=== PATIENT | female | born 1990 | race Caucasian/White ===

== ENCOUNTER 2019-11-08 10:10 | Observation (INO) ==
[2019-11-08 10:39] LABS: Bilirubin,Urine Negative (Negative); Blood,Urine Negative (Negative); Clarity,Urine Clear (Clear); Color,Urine Yellow (Yellow); Glucose,Urine (UA) Normal (Normal); Ketones,Urine Trace mg/dL (Negative); Leukocyte Esterase,Urine Negative (Negative); Nitrite,Urine Negative (Negative); PH,Urine 5.5 pH Units (5.0-8.0); Protein,Urine Negative (Neg-Trace); Specific Gravity,Urine 1.015 (1.010-1.025); Urobilinogen,Urine Normal (Normal)
[2019-11-08 10:54] LABS: Basophils % 0.2 %; Eosinophils % 0.3 %; Hematocrit 31.8 % (35.3-44.9); Hemoglobin 10.9 g/dL (11.5-15.4); Immature Granulocytes % 0.3 % (0-4); Lymphocytes # 1.1 K/mcL (0.6-4.6); Lymphocytes % 12.9 %; Mean Corpuscular HGB Conc 34.3 g/dL (31.6-35.5); Mean Corpuscular Volume 90.3 fL (83.0-100.0); Mean Platelet Volume 9.4 fL (9.4-12.4); Monocytes # 0.5 K/mcL (0.0-1.3); Monocytes % 5.8 %; Neutrophils # 7.1 K/mcL (1.6-8.9); Platelet Count 228 K/mcL (140-400); Red Blood Count 3.52 M/mcL (3.82-4.97); Red Cell Distribution Width 11.5 % (11.5-14.5); Segmented Neutrophils % 80.5 %; White Blood Count 8.8 K/mcL (4.3-11.1)
[2019-11-08 11:03] LABS: Activated Partial Thrombo Time 28.7 Seconds (26.0-36.0)
[2019-11-08 11:16] LABS: Alanine Aminotransferase 9 Units/L (7-52); Albumin 4.4 g/dL (3.5-5.7); Albumin/Globulin Ratio 1.9 (1.1-2.2); Alkaline Phosphatase 49 Units/L (34-104); Aspartate Amino Transferase 12 Units/L (13-39); BUN/Creatinine Ratio 14 (6-26); Bilirubin,Total 0.5 mg/dL (0.3-1.0); Blood Urea Nitrogen 8 mg/dL (6-20); Carbon Dioxide 23 mEq/L (23-29); Chloride 104 mEq/L (98-107); Globulin 2.3 g/dL (2.4-3.5); Glucose 93 mg/dL (70-105); Osmolality,Calculated 276 (280-300); Potassium 3.6 mEq/L (3.5-5.1); Sodium 134 mEq/L (136-145); Total Protein 6.7 g/dL (6.4-8.9); eGFR For African Americans > 60 (> 60); eGFR For Non-African Americans > 60 (> 60)
[2019-11-08 11:55] LABS: Candida DNA Not Detected (Not Detect); Gardnerella DNA DETECTED (Not Detect); Trichomonas DNA Not Detected (Not Detect)
[2019-11-08] MEDS ORDERED: Lidocaine -MPF 4% 5 ML AMPUL ONE (13:17)
[2019-11-08] MEDS ORDERED: Lidocaine -MPF 2% 2 ML VIAL ONE (13:24)
[2019-11-08] MEDS ORDERED: Dexamethasone 4 MG/ML VIAL ONE (13:24)
[2019-11-08] MEDS ORDERED: *HR* Rocuronium Bromide 50 MG/5 ML VIAL ONE (13:24)
[2019-11-08] MEDS ORDERED: *HR* Succinylcholine 200 MG/10 ML VIAL IVP ONE (13:24)
[2019-11-08] MEDS ORDERED: Ondansetron 4 MG/2 ML VIAL ONE ×2 (13:24→13:48)
[2019-11-08] MEDS ORDERED: *HR* Midazolam HCl 2 MG/2 ML VIAL ONE (13:25)
[2019-11-08] MEDS ORDERED: *HR* FentaNYL (PF) 100 MCG/2 ML VIAL ONE (13:25)
[2019-11-08] MEDS ORDERED: Acetaminophen IV 1,000 MG/100 ML INFUS..BTL ONE (13:32)
[2019-11-08] MEDS ORDERED: Scopolamine Patch 1.5 MG PATCH.TD72 ONE (13:32)
[2019-11-08] MEDS ORDERED: Famotidine 20 MG/2 ML VIAL ONE (13:32)
[2019-11-08] MEDS ORDERED: CeFAZolin 2 GM/120 ML BAG IVPB ONE (13:37)
[2019-11-08] MEDS ORDERED: Bupivacaine/EPI 1:200k 0.25%PF 10 ML VIAL INFILT ONE (13:43)
[2019-11-08] MEDS ORDERED: *HR* Promethazine 25 MG/ML VIAL IVP PRN (13:46)
[2019-11-08] MEDS ORDERED: *HR* Labetalol 20 MG/4 ML SYRINGE IVP PRN (13:46)
[2019-11-08] MEDS ORDERED: *HR* HYDROmorphone (PF) 1 MG/ML SYRINGE IVP PRN (13:46)
[2019-11-08] MEDS ORDERED: *HR* HYDROmorphone 2 MG TABLET PO PRN (13:46)
[2019-11-08] MEDS ORDERED: *HR* OxyCODONE Immed Rel 5 MG TABLET PO PRN ×2 (13:46→20:00)
[2019-11-08] MEDS ORDERED: *HR* HYDROMORPHONE 2 MG/ML VIAL ONE (13:48)
[2019-11-08] MEDS ORDERED: *HR* Propofol 200 MG/20 ML VIAL IVP ONE (15:45)
[2019-11-08 17:21] VITALS: BP 121/73
== END 2019-11-08 17:40 | disposition home or self-care (01) ==
LOC: 1NENUPED 10:10 → EMEROOARM 10:10 → 1NENUPED 17:03
PROVIDERS: ADMIT Student in an Organized Health Care Education/Training Program; ATTEND Student in an Organized Health Care Education/Training Program

== ENCOUNTER → 2020-12-20 13:12 | Observation (INO) | END | disposition home or self-care (01) | LOC: 1NENULAB | PROVIDERS: ADMIT Student in an Organized Health Care Education/Training Program; ATTEND Student in an Organized Health Care Education/Training Program ==

== ENCOUNTER 2020-12-21 01:37 | Inpatient (IN) ==
[2020-12-21] MEDS ORDERED: Ondansetron 4 MG/2 ML VIAL IVP PRN (02:03)
[2020-12-21] MEDS ORDERED: Naloxone 0.4 MG/ML INJ IVP PRN (02:03)
[2020-12-21] MEDS ORDERED: Metoclopramide 10 MG/2 ML VIAL IVP PRN (02:03)
[2020-12-21] MEDS ORDERED: *HR* Nalbuphine 10 MG/ML AMPUL IV PRN (02:03)
[2020-12-21] MEDS ORDERED: Famotidine 20 MG/2 ML VIAL IVP PRN (02:03)
[2020-12-21] MEDS ORDERED: Azithromycin 500 MG in 0.9 % Sodium Chloride 250 ML IVPB PRN (02:03)
[2020-12-21] MEDS ORDERED: *HR* Nalbuphine 10 MG/ML AMPUL ONE (02:05)
[2020-12-21] MEDS ORDERED: Ondansetron 4 MG/2 ML VIAL ONE (02:05)
[2020-12-21] MEDS ORDERED: Ringers Solution, Lactated 1,000 ML IVC SCH (02:15)
[2020-12-21 02:27] LABS: Basophils % 0.2 %; Eosinophils % 0.1 %; Hematocrit 36.3 % (35.3-44.9); Hemoglobin 12.4 g/dL (11.5-15.4); Immature Granulocytes % 0.6 % (0-4); Lymphocytes # 1.2 K/mcL (0.6-4.6); Lymphocytes % 7.6 %; Mean Corpuscular HGB Conc 34.2 g/dL (31.6-35.5); Mean Corpuscular Hemoglobin 31.6 pg (28.0-33.3); Mean Corpuscular Volume 92.6 fL (83.0-100.0); Mean Platelet Volume 10.6 fL (9.4-12.4); Monocytes # 0.6 K/mcL (0.0-1.3); Monocytes % 3.8 %; Neutrophils # 13.8 K/mcL (1.6-8.9); Platelet Count 249 K/mcL (140-400); Red Blood Count 3.92 M/mcL (3.82-4.97); Red Cell Distribution Width 12.1 % (11.5-14.5); Segmented Neutrophils % 87.7 %; White Blood Count 15.7 K/mcL (4.3-11.1)
[2020-12-21 02:35] LABS: Protein/Creatinine Ratio,Urine 0.25 mg/mg (0.00-0.20)
[2020-12-21 02:36] LABS: Amphetamine Screen,Urine Negative ng/mL (Cutoff=1000); Barbiturate Screen,Urine Negative ng/mL (Cutoff=200); Benzodiazepines Screen,Urine Negative ng/mL (Cutoff=200); Cannabinoid Screen,Urine Negative ng/mL (Cutoff = 50); Cocaine Screen,Urine Negative ng/mL (Cutoff= 300); Opiate Screen,Urine Negative ng/mL (Cutoff=300); Phencyclidine Screen,Urine Negative ng/mL (Cutoff=25)
[2020-12-21 02:47] LABS: Alanine Aminotransferase 52 Units/L (7-52); Aspartate Amino Transferase 29 Units/L (13-39); BUN/Creatinine Ratio 16 (6-26); Blood Urea Nitrogen 8 mg/dL (6-20); Lactate Dehydrogenase 130 Units/L (140-271); Uric Acid 3.2 mg/dL (2.3-7.6); eGFR For African Americans > 60 (> 60); eGFR For Non-African Americans > 60 (> 60)
[2020-12-21] MEDS ORDERED: *HR* FentaNYL (PF) 100 MCG/2 ML VIAL EP ONE (03:48)
[2020-12-21] MEDS ORDERED: Ropivacaine/PF 0.2% 20 ML VIAL EP ONE (03:48)
[2020-12-21] MEDS ORDERED: EPHEDrine 50 MG/ML VIAL IVP PRN (03:48)
[2020-12-21] MEDS ORDERED: Epidural Premix (fent/bupiv) 110 ML EP SCH (04:00)
[2020-12-21] MEDS ORDERED: Lidocaine 1% 20 ML MDV ONE ×2 (04:34→05:30)
[2020-12-21] MEDS ORDERED: Benzocaine/Menthol 56 GM AEROSOL SPRAY TP ONE (05:40)
[2020-12-21] MEDS ORDERED: Lanolin 7 G OINT...G. TP PRN (08:12)
[2020-12-21] MEDS ORDERED: *HR* HYDROcodone/Acet 5/325 mg TABLET PO PRN (08:12)
[2020-12-21] MEDS ORDERED: Oxytocin 20 units/ LR 1000 mL 20 UNIT/1,000 ML BAG IVC SCH (08:12)
[2020-12-21] MEDS ORDERED: Benzocaine/Menthol 56 GM AEROSOL SPRAY TP PRN (08:12)
[2020-12-21] MEDS: Prenatal Vit/FA 1 EACH TABLET PO SCH (10:01)
[2020-12-21] MEDS: Ibuprofen 600 MG TABLET PO PRN (17:16)
[2020-12-22] MEDS: Ibuprofen 600 MG TABLET PO PRN ×2 (02:03→08:28)
[2020-12-22] MEDS: Acetaminophen 325 MG TABLET PO PRN ×2 (02:03→08:29)
[2020-12-22 06:34] LABS: Basophils # 0.1 K/mcL (0.0-0.2); Basophils % 0.4 %; Eosinophils # 0.1 K/mcL (0.0-0.6); Eosinophils % 0.8 %; Hematocrit 30.7 % (35.3-44.9); Immature Granulocytes % 0.8 % (0-4); Lymphocytes # 2.3 K/mcL (0.6-4.6); Lymphocytes % 17.6 %; Mean Corpuscular HGB Conc 32.9 g/dL (31.6-35.5); Mean Corpuscular Hemoglobin 31.5 pg (28.0-33.3); Mean Corpuscular Volume 95.6 fL (83.0-100.0); Mean Platelet Volume 10.4 fL (9.4-12.4); Monocytes % 7.4 %; Neutrophils # 9.6 K/mcL (1.6-8.9); Platelet Count 179 K/mcL (140-400); Red Blood Count 3.21 M/mcL (3.82-4.97); Red Cell Distribution Width 12.3 % (11.5-14.5); White Blood Count 13.2 K/mcL (4.3-11.1)
[2020-12-22 06:38] LABS: Hemoglobin 10.1 g/dL (11.5-15.4)
[2020-12-22 08:19] VITALS: BP 114/75; PULSE 70; TEMP 98; O2SAT 97
[2020-12-22] MEDS: Prenatal Vit/FA 1 EACH TABLET PO SCH (08:28)
== END 2020-12-22 11:11 | disposition home or self-care (01) | DRG 807 ==
LOC: 1NENULAB → OBSVTOIN 01:37 → 1NENULAB 02:07 → 1NENUOBS 08:09
PROVIDERS: ADMIT Student in an Organized Health Care Education/Training Program; ATTEND Student in an Organized Health Care Education/Training Program